=== PATIENT | male | born 1935 | race Caucasian/White ===

== ENCOUNTER → 2018-09-16 07:28 | Outpatient (CLI) | payer OTHER, SELFPAY ==
--- NOTE | 2018-09-16 | DI.ECHO.S_ITS ---
[facility] +---------+ : : [address] : : : : [id number] : : : : Phone: [phone]+ Echocardiogram Report + + :Name: ELAN SINGH Study Date: 09/16/2018 Height: 65 in : :[facility] Weight: 209 lb : : Gender: Male BSA: 2.0 m2 : :: 1935 Age: 83 yrs BP: 146/78 mmHg: :Reason For Study: DYSPNEA ON EXERTION, AFIB : : Performed By: Jocelyn Antunez : :Referring: ADRIANO RICHARDSON : + + Interpretation Summary The left ventricle is normal in size. Left ventricular systolic function is borderline reduced. Left ventricular ejection fraction is estimated to be 50%. There has been no significant change since the previous study. There is proximal/mid inferior and inferolateral severe hypokinesis and part of basal anterolateral is involved as well. Compared to the prior exam, the left ventricular wall motion has not changed. Diastolic function could not be accurately assessed due to atrial fibrillation. The right ventricle is normal in size and function. The left atrium is severely dilated. Right atrial size is normal. There is mild to moderate mitral regurgitation. There is mild to moderate aortic regurgitation. Both have slightly increased since prior study. The aortic root is normal size. Procedure: A two-dimensional transthoracic echocardiogram with color flow and Doppler was performed. The study quality was technically adequate. Comparison is made with the echocardiogram of 09/23/2011. The patient was in atrial fibrillation with heart rates between 59-83 bpm during the exam. Left Ventricle: The left ventricle is normal in size. There is mild asymmetric left ventricular hypertrophy. There is no ventricular septal defect visualized. Left ventricular systolic function is borderline reduced. Left ventricular ejection fraction is estimated to be 50%. There has been no significant change since the previous study. There is proximal/mid inferior and inferolateral severe hypokinesis and part of basal anterolateral is involved as well. Compared to the prior exam, the left ventricular wall motion has not changed. Diastolic function could not be accurately assessed due to atrial fibrillation. Right Ventricle: The right ventricle is normal in size and function. Atria: The left atrium is severely dilated. Right atrial size is normal. There is no Doppler evidence for an interatrial shunt. Mitral Valve: The mitral valve leaflets are slightly calcified. There is mild to moderate mitral regurgitation. Aortic Valve: The aortic valve is trileaflet. The aortic valve is slightly calcified. There is mild to moderate aortic regurgitation. Tricuspid Valve: The tricuspid valve is normal in structure and function. There is trace tricuspid regurgitation. Pulmonic Valve: The pulmonic valve is not well seen, but is grossly normal. There is trace pulmonic regurgitation. Great Vessels: The aortic root is normal size. The ascending aorta is at the upper limits of normal in size. The aortic arch is normal in size. The IVC is of normal diameter and collapses greater than 50% with a sniff. This suggests a low right atrial pressure of 3 mm Hg. Pericardium/ Pleura There is no pericardial effusion. MMode/2D Measurements & Calculations LVIDd: 5.0 cm LVOT diam: 2.2 cm LVIDs: 4.1 cm Ao root diam: 3.6 cm FS: 18.6 % Aortic Jxn: 2.7 cm EPSS: 0.40 cm asc Aorta Diam: 3.4 cm IVSd: 1.1 cm Ao Arch Diam (Prox Trans): 3.0 cm LVPWd: 0.67 cm LV faria. diameter/BSA (cm/m^2): 2.5 LV sys. diameter/BSA (cm/m^2): 2.0 LA A2 area: 29.8 cm2 RA long axis: 5.7 cm LA A4 area: 28.7 cm2 RA area: 20.1 cm2 LA length (vol): 6.0 cm RA vol: 60.1 ml LA vol: 120.1 ml RA : 29.8 ml/m2 LA vol index: 59.6 ml/m2 IVC diam: 1.9 cm RVD1 (basal): 3.8 cm TAPSE: 1.4 cm Doppler Measurements & Calculations LVOT Max Arsalan: 67.2 cm/sec MV E max arsalan: 85.2 cm/sec LV V1 max P.8 mmHg Med Peak E' Arsalan: 5.9 cm/sec LV V1 VTI: 14.9 cm E/E' med: 14.3 AI P1/2t: 584.7 msec Lat Peak E' Arsalan: 6.3 cm/sec AI dec slope: 182.3 cm/sec2 E/E' lat: 13.5 E/e' average: 13.9 MV P1/2t: 51.9 msec MR ERO: 0.05 cm2 TR max arsalan: 211.1 cm/sec MV P1/2t max arsalan: 85.5 cm/sec TR max P.9 mmHg MVA(P1/2t): 4.2 cm2 PA V2 max: 58.4 cm/sec PA V2 mean: 40.8 cm/sec PA mean P.76 mmHg PA pr(Accel): 46.6 mmHg MR flow rate: 22.1 cm3/sec SV(LVOT): 58.1 ml MR PISA radius: 0.30 cm Reading Physician:03:14 PM
--- NOTE | 2018-09-16 14:52 | P.PCN_ITS ---
Cardiac Stress Test Report Referral & Results Date Patient Seen: 09/16/18 Requesting provider: Varun King Indication: Dyspnea upon exertion Rest ECG: Unremarkable, however did have an undetermined supraventricular rhythm that was not atrial fibrillation Procedure Note: After both written and verbal informed consent the patient had an IV started by the diagnostic imaging RN and then was hooked up to the treadmill monitoring system. The patient was placed on the treadmill at 1 mile an hour with no elevation and was then injected with the Marissa scan material. The Cardiolite was then immediately administered. The patient spent an additional 2-3 minutes on the treadmill before being returned to the [facility] in the supine position. The patient had a normal response to all infused materials. Impression: Normal response to infuse materials Please see perfusion imaging report for details regarding possible ischemia Please note: Actual ECG tracings can be found in the PACS system.
--- NOTE | 2018-09-17 07:59 | DI.NM.S_ITS ---
DATE OF SERVICE: 09/16/2018 STUDY TYPE: One-day pharmaceutical nuclear stress test. RADIOISOTOPES: 15.1 mCi of Tc-99m used at rest and 26.1 mCi Tc-99m used at stress. STRESS AGENT: Lexiscan 0.4 mg IV x1 given as a stress agent. ECG: Resting ECG shows atrial fibrillation with controlled ventricular rate. No ischemic ST changes with Lexiscan. SYMPTOMS: No angina during the study. 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 SSS and SRS scores are both 5. GATED IMAGES: Normal left ventricular size, wall motion, and systolic function (post-stress EF 63%). TID ratio is 0.93, normal. Lung to heart ratio is 0.39, normal. CONCLUSIONS: Abnormal pharmaceutical nuclear stress test, consistent with prior infarction. No ischemia. 1. Abnormal perfusion images, consistent with prior infarction in the basal to mid-lateral wall. No ischemia. Summed stress score (SSS) and summed rest score (SRS) are both 5. 2. Normal left ventricular size, wall motion, and systolic function (EF post- stress 63%). 3. No electrocardiogram (ECG) evidence of ischemia. 4. No angina during the study. 5. No prior nuclear stress test available for comparison. ELAN SINGH - ZENY/jareth/ts doc#: [id number]/job#: [id number] dd: 09/16/2018 16:52:00 dt: 09/17/2018 07:38:00 DICTATING /COPIES TO: Ranjan Macedo MD COPIES MNE: JEWELS
== END ==
PROVIDERS: PCP Student in an Organized Health Care Education/Training Program; Visit Provider Nurse Practitioner Family
DX: I08.0 Rheumatic disorders of both mitral and aortic valves (principal); R94.39 Abnormal result of other cardiovascular function study; R06.09 Other forms of dyspnea; I48.91 Unspecified atrial fibrillation; I49.8 Other specified cardiac arrhythmias
CPT/HCPCS: 78452; 93016; 93017; 93018; 93306; A9502; J2785

== ENCOUNTER → 2018-10-14 12:48 | Outpatient (CLI) | payer OTHER, SELFPAY ==
--- NOTE | 2018-10-19 08:07 | PM.PFT.1 ---
Pulmonary Function Test Referral & Results Date Patient Seen: 10/14/18 Requesting provider: Varun King Results: The spirometry demonstrates an FVC of 1.86 L which is 50% of predicted. The FEV1 was measured at 1.50 L which is 60% of predicted. The FEV1/FVC ratio was 81 which is 113% of predicted. Following the administration of bronchodilator there was a 50% improvement in FEV1 and a 81% improvement in FEF 25-75%. Lung volumes show an SVC of 1.76 L which is 47% of predicted. The diffusing capacity was measured at 18.88 which is 70% of predicted. No hemoglobin value was provided, so no correction for potential anemia could be made, if appropriate. The maximum voluntary ventilation was reduced Interpretation: This study demonstrates moderate obstructive lung disease based on reduction in FEV1. There is evidence of benefit following bronchodilator given the 15% improvement in FEV1 and the 80+% improvement in small airway flow based on improved FEF 25-75% There is also moderately severe restrictive lung disease based on significant reduction in lung volumes There is also reduction in diffusing capacity as noted above Altogether this is consistent with a diagnosis of COPD Clinical correlation suggested
== END ==
PROVIDERS: PCP Student in an Organized Health Care Education/Training Program; Visit Provider Student in an Organized Health Care Education/Training Program
DX: R06.09 Other forms of dyspnea (principal)
CPT/HCPCS: 94060; 94726; 94729

== ENCOUNTER 2022-06-12 08:48 | Day surgery (SDC) | payer MEDICARE, SELFPAY ==
[2022-06-09 09:36] VITALS: BMI 33.7
[2022-06-12] VITALS (13 sets, daily range): BP systolic 99–141; BP diastolic 42–75; PULSE 74–96; RESP 15–19; TEMP 36.1–36.7; O2SAT 94–98; BMI 33.7
--- NOTE | 2022-06-12 06:00 | DI.RAD.S_ITS ---
PROCEDURE: XR KNEE RT 1TO2V INDICATIONS: TKA TECHNIQUE: 2 view(s) of the knee acquired. COMPARISON: None. FINDINGS: Bones: Patient is status post knee joint arthroplasty. Hardware components are in expected positions. Visualized bony structures are intact. Soft tissues: Overlying postoperative changes are noted. IMPRESSION: Expected appearance of knee arthroplasty. Dictated by: Neil Almonte M.D. on 06/12/2022 at 14:41 Transcribed by: INEZ on 06/12/2022 at 14:41 Approved by: Neil Almonte M.D. on 06/12/2022 at 16:57
[2022-06-12] MEDS: ACETAMINOPHEN 325 MG TABLET 975 MG PO (09:39)
[2022-06-12] MEDS: CELECOXIB 200 MG CAPSULE PO (09:39)
[2022-06-12] MEDS: LACTATED RINGERS 1,000 ML 84 ML IV ×2 (09:40→12:01)
[2022-06-12] MEDS: VANCOMYCIN 1,000 MG/200 ML PIGGYBACK 200 MG IV (09:51)
--- NOTE | 2022-06-12 10:38 | PM.PREOP ---
Pre-operative Note COVID-19 COVID-19 status: Negative Interval Note History & Physical reviewed/Exam performed by Physician: Yes Changes to H&P: No
--- NOTE | 2022-06-12 10:38 | PM.OP.1 ---
Operative Date/Time/Diagnoses Date of procedure: 06/12/22 Time of procedure: 11:10 Pre-op diagnosis: right knee OA Post-op diagnosis: same Procedure & Clinicians Procedure: right total knee arthroplasty Same procedure as scheduled: Yes Indications: The patient has had progressively worsening right knee pain with radiographic changes consistent with arthritis. Non-operative management has failed and the patient has requested total knee replacement. The risks, benefits and alternatives to surgery were discussed with the patient prior to proceeding. Risks discussed included, but were not limited to, failure to relieve pain, stiffness, infection, nerve damage, deep venous thrombosis, pulmonary embolism, stroke, coma, heart attack, permanent paralysis and , as well as the potential need for eventual revision of the prosthetic. Surgeon: Charo Warner Showroom Sales Consultant: Neda Alvarado Anesthesia Type: General Operative Notes Findings: Severe right knee osteoarthritis, acceptable stability Closure Type: primary Specimen(s): none sent Prosthetic devices, grafts, tissues, transplants, or devices: [employer] [facility] BCS 2 size 5 femur, size 5 tibia, +9 poly, 32 x 7-1/2 mm patella Estimated Blood Loss (mL): 250 Blood products transfused: none Tourniquet time (min): 76 Procedure in detail: The patient was seen in the pre-operative area, where the patient identified the right knee as the operative site and this was marked with my initials. The patient received pre-operative antibiotics, and was taken to the operating room and placed on the operative table in the supine position. After satisfactory anesthesia, a time piece repairer out was performed. The right leg was encircled with a tourniquet about the proximal thigh, and the leg was prepared from the toes to the tourniquet with ChloroPrep in the usual fashion and draped through sterile drapes. The leg was elevated and exsanguinated with Eschmark bandage and the tourniquet inflated to [250] mmHg pressure. The knee was approached through an approximately 18 cm incision centered over the patella and carried into the knee through a medial parapatellar arthrotomy. A portion of the medial and lateral meniscus was resected. Soft tissue was carefully mobilized around the patella the patella was measured with a caliper. Bone was resected from the patella and the patellar height was reconstituted with up an appropriate sized patellar component. A cover was then placed on the patella. A small amount of additional medial and lateral meniscus was resected. The distal femur was cut at 5?. A [+2] cut was used. It looked like an appropriate distal femoral cut and the cut was made without difficulty. An extramedullary guide was used for the tibial cut. 10 mm was resected off the least affected side.The tibia was prepared. The rotation was assessed. The patient was placed in extension residual medial and lateral meniscus as well as any residual bone was carefully resected. [No] additional tibia was resected. Hemostasis was achieved especially posteriorly. Additional local was injected into the posterior capsule. The extension gap was assessed and additional releases for gap balancing were performed as necessary. It was checked with the gap cellar packer. The femoral component was trial was placed and the notch was finished. The rotation was assessed and the appropriate size femoral guide was placed on the distal femur and finishing cuts were made. There was no evidence of notching. The anterior, posterior and chamfer cuts were then made. The posterior osteophytes and soft tissues were then removed. The posterior capsule was injected with part of a mixture of 60 ml 0.25% Marcaine mixed with 20 ml Exparel for post operative pain control. The remainder of this mixture was injected into the capsule and subcutaneous tissues during cement curing. The tibial and femoral components were then placed and the knee placed through a range of motion. Range of motion was [0-130], with good stability throughout the range. The trials were then removed, and the tibia was finished. The bone was prepared with pulsatile lavage, and dried with a sponge. Cement was applied and the final prosthetics placed. Excess cement was removed during and after cement curing. A brief Betadine soak was performed. After confirming there was no extruded cement posteriorly, the final tibial insert was placed. The knee was copiously irrigated and the tourniquet deflated. Hemostasis was obtained with the bovie cautery. A drain was placed and brought out superolaterally. The capsule was closed with interrupted nonabsorbable suture. The subcutaneous layer was closed with barbed sutures, and the skin with a running 3-0 V-Lock suture and Surgical glue. A Jessica dressing was applied and the patient was taken to recovery having tolerated the procedure well. Complications: none Post-operative Condition: stable Disposition: Acute Care Plan for aftercare: The patient will be maintained on a standard total knee replacement protocol with weight bearing as tolerated. The patient will receive Eliquis and Plavix and sequential compression devices for DVT prophylaxis. The patient will be discharged home when safe for the home environment.
[2022-06-12] MEDS: CEFAZOLIN 2 GM/100 ML PREMIX 100 ML IV ×2 (11:05→17:05)
[2022-06-12] MEDS: TRANEXAMIC ACID 1,000 MG VIAL 2000 MG INJ ×2 (11:10→12:40)
--- NOTE | 2022-06-12 11:28 | SUR.OPER ---
Supine on padded OR bed. Pillow under head, arms secured on padded armboards <90 degree abduction. Safety belt across torso. Non-operative leg secured with tape over blanket over lower leg. Operative leg secured in DeMayo positioner. Foam padded brace at thigh of operative leg.
[2022-06-12] MEDS: BUPIVACAINE LIPOSOME 266 MG/20 ML VIAL INJ (11:39)
[2022-06-12] MEDS: SODIUM CHLORIDE IRRIG SOLUTION 250 ML, POVIDONE-IODINE SPONGE STICKS 1 APPLIC IRR (11:44)
[2022-06-12] MEDS: BUPIVACAINE 0.5% W/ EPI (PF) 30 ML VIAL INJ (11:50)
[2022-06-12] MEDS: LACTATED RINGERS 1,000 ML 100 ML IV (15:44)
[2022-06-12] MEDS: UMECLIDINIUM 1 EACH INH (15:44)
--- NOTE | 2022-06-12 16:35 | PT.IIE ---
Current Diagnoses Unilateral primary osteoarthritis, right knee (06/12/22) Surgery Performed Operation Date: 06/12/22 10:45 Actual Procedures p Total Knee Arthroplasty(Right) - Charo Warner MD Surgical History (Last Updated 06/09/22 @ 10:24 by Raquel Pena RN) H/O vasectomy 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) History of urologic surgery (2021) Hx laparoscopic cholecystectomy (2009) Hx of esophagogastroduodenoscopy (08/19/21) Hx of heart artery stent (1999) Hx of lithotripsy (2016) Hx of tonsillectomy (1941) Hx of umbilical hernia repair (2014) Medical History (Last Updated 06/09/22 @ 10:24 by Raquel Pena RN) Atrial fibrillation BCC (basal cell carcinoma) CAD (coronary artery disease) Cardiac arrest (1999) Chronic kidney disease (CKD) COPD (chronic obstructive pulmonary disease) Diastolic dysfunction Erectile dysfunction Hearing impaired Heartburn History of Mohs micrographic surgery for skin cancer (06/02/22) HTN (hypertension) Liver nodule 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) Myocardial infarction (1999) PAC (premature atrial contraction) PAD (peripheral artery disease) PVC (premature ventricular contraction) Renal colic SCC (squamous cell carcinoma) Sleep apnea Physical Therapy Inpatient Evaluation/Re-Eval M1 PT/OT-IP Prior Functional Status Start: 06/12/22 17:37 Freq: NEEDED Status: Active Protocol: Document 06/12/22 16:35 AB (Rec: 06/12/22 17:45 AB [id number]) Medical Review Prior Functional Status Medical History Reviewed Yes Communication able to make needs known Mobility and Gait pt stated that he is modified independent with all mobilities and ambulation without AD indoors but uses a walking stick for outdoor ambulation Social History Household Members spouse Living Arrangements House Number of Floors (Floors) One Floor Number of Stairs To Enter/Railing? no steps to enter Home Environment Standard Height Toilet,Walk in Shower Home Equipment Front Wheel Walker,Grab Bars Near Toilet,Grab Bars In Shower M2 PT-IP Current Condition Start: 06/12/22 17:37 Freq: NEEDED Status: Active Protocol: Document 06/12/22 16:35 AB (Rec: 06/12/22 17:45 AB [email or web address]) Physical Therapy Current Condition Current Condition Evaluation Date 06/12/22 Treatment Diagnosis s/p R TKA; difficulty in walking Onset Date 06/12/22 M3 PT-IP Subjective Start: 06/12/22 17:37 Freq: NEEDED Status: Active Protocol: Document 06/12/22 16:35 AB (Rec: 06/12/22 17:45 AB [email or web address]) Subjective Physical Therapy Visit Type Type Initial Evaluation Visit Start Time 16:35 Visit Stop Time 17:20 Total Visit Minutes 45 Number of LINE CONSTRUCTION ENGINEER Visits 0 Physical Therapy Visit Comments Patient Comments agreeable to do PT Therapy Pain Assessment Pain When Pain Assessed At Rest Pain Present Pain Present Pain Reported Location Right Knee Intensity 3 Scale Used increases to 5/10 with mobility Pain Management Techniques Apply Cold,Distraction, Modification of Treatment,Re- positioning,Timing of Activity with Medications M4 PT-IP Mobility and Gait Start: 06/12/22 17:37 Freq: NEEDED Status: Active Protocol: Document 06/12/22 16:35 AB (Rec: 06/12/22 17:45 AB [email or web address]) PT-Bed Mobility Assessment Supine to Sit Supine to Sit Standby Assistance PT-Transfer Assessment Sit to and From Stand Sit to and from Stand Contact Guard Assistance,1 Person Assistance,Use of Upper Extremities Equipment Transfer Assistive Device Gait Belt,Front Wheeled Walker Orthotic/Prosthetic Devices or Brace: No Transfers Transfer Destination Chair Transfer Technique ambulated Transfer Ability Level of Assist Contact Guard Assistance,1 Person Assistance,Use of Upper Extremities Comments Mobility Comments completed heel slides prior to mobility. completed supine to sit SBA. Able to sit on EOB SBA. completed sit to stand CGA and ambulated in room using FWW CGA ~ 35 ft. pt agreed to sit up on the chair and sat on the chair. assessed sit to stand from the chair and pt completed SBA to CGA. positioned pt back on the chair. set up for dinner. call light and table placed within reach. pt's spouse staying in room with pt for the night and agreeable to do caregiver training tomorrow when appropriate. Gait Assessment Gait Gait Assistance Required: Contact Guard Assist Distance (Feet) 35 Able to Maintain Weight Bearing Status Yes During Gait Assistive Devices Assistive Device Gait Belt,Front Wheeled Walker Orthotic/Prosthetic Devices or Brace: No Gait Deviations General Gait Pattern Decreased Stride Length, Decreased Feet Clearance,Step- to Gait Factors Limiting Gait Function Factors Limiting Gait Function Decreased Activity Tolerance, Decreased Strength,Limited Range of Motion,Pain,Poor Balance,Poor Safety Awareness PT-Balance Assessment Sitting Balance and Reactions Static Sitting Balance Ability Normal Dynamic Sitting Balance Ability Good Standing Balance and Reactions Static Standing Balance Ability Fair Dynamic Standing Balance Ability Fair Device Used FWW M5 PT-IP Objective Assessments Start: 06/12/22 17:37 Freq: NEEDED Status: Active Protocol: Document 06/12/22 16:35 AB (Rec: 06/12/22 17:45 AB [email or web address]) Orientation Orientation/Cognition Level of Alertness Alert Orientation Name,Place,Situation Language Function Ability Hard of Hearing Safety Awareness Understands Safety Issues Memory Description No Deficits Noted Gross Range of Motion Lower Extremity ROM Assessment Right Impaired Impairments R knee flexion: ~ 75 deg Strength Lower Extremity Strength Assessment Right Impaired Hip 4-/5 Knee 4-/5 Coordination Assessment Gross Coordination Gross Coordination WNL Sensation Assessment Sensation Gross Sensation WNL Muscle Tone Muscle Tone WNL Yes M6 PT-IP Treatment Start: 06/12/22 17:37 Freq: NEEDED Status: Active Protocol: Document 06/12/22 16:35 AB (Rec: 06/12/22 17:45 AB [id number]) Physical Therapy Treatment Exercises Exercises Heel Slides Education Education Provided Precautions,Weight Bearing Status,Post-Op Packet,Safety M7 PT-IP Assessment and Plan Start: 06/12/22 17:37 Freq: NEEDED Status: Active Protocol: Document 06/12/22 16:35 AB (Rec: 06/12/22 17:45 AB [id number]) PT Summary Assessment and Plan Potential Rehabilitation Potential Good Status of Condition at Evaluation Stable Summary Impairments Pain,ROM,Strength,Balance, Coordination,Sensation,Tone, Cognition,Bed Mobility, Transfers,Gait,Activity Tolerance Assessment Summary pt requiring CGA with mobility using FWW. pt plans to go home with spouse to assist him . pt will likely progress during hospital stay. will conduct caregiver training when appropriate. will continue to assess progress. Goals Bed Mobility Goal Independent Transfer Goal Independent,Front Wheeled Walker Gait Goal Independent,Front Wheel Walker Gait Distance 150 Days to Meet Goals 5 Frequency of Treatment Frequency Of Treatment Twice a Day Treatment Plan Physical Therapy Treatment Plan Bed Mobility Training,Transfer Training,Gait Training, Therapeutic Exercise,Balance Retraining,Post Op Education, Discharge Planning,Hot or Cold Pack,Neuromuscular Re-ed, Coordination Retraining,Manual Therapy Weight Bearing Status Weight Bearing Status Weight Bear as Tolerated Allowed Weight Bearing Amount (enter % RLE WBAT or #) (%) Recommendations To Nursing Amount of Assist Needed 1 Person Assist Discharge Recommendations PT Discharge Recommendations Home with Assistance, Outpatient PT Transportation Needs at Discharge Private Vehicle
[2022-06-12] MEDS: IBUPROFEN 400 MG TABLET PO ×2 (16:57→20:53)
[2022-06-12] MEDS: ACETAMINOPHEN 325 MG TABLET 650 MG PO (17:05)
[2022-06-12] MEDS: METOPROLOL ER 50 MG TABLET PO (20:52)
[2022-06-12] MEDS: DOCUSATE 100 MG CAPSULE PO (20:52)
[2022-06-12] MEDS: AMLODIPINE 5 MG TABLET PO (20:52)
[2022-06-12] MEDS: TRAMADOL 50 MG TABLET PO (20:52)
[2022-06-12] MEDS: ATORVASTATIN 20 MG TABLET 10 MG PO (20:52)
[2022-06-12] MEDS: MELATONIN 3 MG TABLET PO (20:53)
[2022-06-13] MEDS: ACETAMINOPHEN 325 MG TABLET 650 MG PO ×3 (01:15→12:19)
[2022-06-13] MEDS: IBUPROFEN 400 MG TABLET PO ×3 (01:16→09:37)
[2022-06-13] MEDS: CEFAZOLIN 2 GM/100 ML PREMIX 100 ML IV (01:16)
[2022-06-13 03:00] VITALS: BP 122/58; PULSE 66; RESP 15; TEMP 36.2; O2SAT 96
[2022-06-13] MEDS: TRAMADOL 50 MG TABLET PO ×2 (03:32→09:36)
[2022-06-13 05:52] LABS: Hematocrit 39.1 % (41-53); Hemoglobin 12.8 g/dL (13.5-17.5)
[2022-06-13 08:34] VITALS: BP 121/63; PULSE 67; RESP 16; TEMP 36.6; O2SAT 97
--- NOTE | 2022-06-13 08:55 | PC.NURSE ---
Patient has a Jessica dressing to his r.knee, motor intact and flashing green. He states that his pain is a 2/10 and he is comfortable. Patient lives in [place] and wants to have his scripts sent to [facility]. CMS wnl, patient doing his ankle waves, and is in room.
[2022-06-13] MEDS: NIACIN 500 MG TABLET PO (09:36)
[2022-06-13] MEDS: PANTOPRAZOLE DR 40 MG TABLET PO (09:36)
[2022-06-13] MEDS: DOCUSATE 100 MG CAPSULE PO (09:36)
--- NOTE | 2022-06-13 10:00 | PT.IPTN ---
Current Diagnoses Unilateral primary osteoarthritis, right knee (06/12/22) Surgery Performed Operation Date: 06/12/22 10:45 Actual Procedures p Total Knee Arthroplasty(Right) - Charo Warner MD Physical Therapy Treatment Note M2 PT-IP Current Condition Start: 06/12/22 17:37 Freq: NEEDED Status: Active Protocol: Document 06/12/22 16:35 AB (Rec: 06/12/22 17:45 AB [id number]) Physical Therapy Current Condition Current Condition Evaluation Date 06/12/22 Treatment Diagnosis s/p R TKA; difficulty in walking Onset Date 06/12/22 M3 PT-IP Subjective Start: 06/12/22 17:37 Freq: NEEDED Status: Active Protocol: Document 06/13/22 10:00 AB (Rec: 06/13/22 12:21 AB [id number]) Subjective Physical Therapy Visit Type Type Treatment Note Visit Start Time 10:00 Visit Stop Time 10:30 Total Visit Minutes 30 Number of DROP HAMMER MECHANIC Visits 0 Physical Therapy Visit Comments Patient Comments agreeable to do PT Therapy Pain Assessment Pain When Pain Assessed At Rest Pain Present Pain Present Pain Reported Location Right Knee Intensity 3 Scale Used increases to 5/10 with mobility Pain Management Techniques Apply Cold,Distraction, Modification of Treatment,Re- positioning,Timing of Activity with Medications M4 PT-IP Mobility and Gait Start: 06/12/22 17:37 Freq: NEEDED Status: Active Protocol: Document 06/13/22 10:00 AB (Rec: 06/13/22 12:21 AB [id number]) PT-Bed Mobility Assessment Supine to Sit Supine to Sit Standby Assistance PT-Transfer Assessment Sit to and From Stand Sit to and from Stand Contact Guard Assistance, Minimal Assistance,1 Person Assistance,Use of Upper Extremities Equipment Transfer Assistive Device Gait Belt,Front Wheeled Walker Orthotic/Prosthetic Devices or Brace: No Transfers Transfer Destination Chair Transfer Technique ambulated Transfer Ability Level of Assist Contact Guard Assistance,1 Person Assistance,Use of Upper Extremities Comments Mobility Comments pt completed supine to sit SBA . sit to stand min A with posterior LOB. educated pt on sit to stand techniques, increase COG awareness and use FWW for balance and support. completed sit to stand again x2 reps and completed CGA and cues. pt ambulated to the chair using fWW CGA. caregiver training conducted. educated spouse on how to use safety belt and how to assist pt. spouse was able to put safety belt on and assisted pt with sit to stand CGA. pt ambulated in room using FWW with spouse assisting ~ 30 ft x 2 . pt needing rest breaks in between walks. pt agreed to sit up on the chair. positioned on the chair. call light and table placed within reach. Gait Assessment Gait Gait Assistance Required: Contact Guard Assist Distance (Feet) 30 Able to Maintain Weight Bearing Status Yes During Gait Assistive Devices Assistive Device Gait Belt,Front Wheeled Walker Orthotic/Prosthetic Devices or Brace: No Gait Deviations General Gait Pattern Decreased Stride Length, Decreased Feet Clearance,Step- to Gait Factors Limiting Gait Function Factors Limiting Gait Function Decreased Activity Tolerance, Decreased Strength,Limited Range of Motion,Pain,Poor Balance,Poor Safety Awareness M5 PT-IP Objective Assessments Start: 06/12/22 17:37 Freq: NEEDED Status: Active Protocol: Document 06/12/22 16:35 AB (Rec: 06/12/22 17:45 AB [id number]) Orientation Orientation/Cognition Level of Alertness Alert Orientation Name,Place,Situation Language Function Ability Hard of Hearing Safety Awareness Understands Safety Issues Memory Description No Deficits Noted Gross Range of Motion Lower Extremity ROM Assessment Right Impaired Impairments R knee flexion: ~ 75 deg Strength Lower Extremity Strength Assessment Right Impaired Hip 4-/5 Knee 4-/5 Coordination Assessment Gross Coordination Gross Coordination WNL Sensation Assessment Sensation Gross Sensation WNL Muscle Tone Muscle Tone WNL Yes M6 PT-IP Treatment Start: 06/12/22 17:37 Freq: NEEDED Status: Active Protocol: Document 06/13/22 10:00 AB (Rec: 06/13/22 12:21 AB [email or web address]) Physical Therapy Treatment Education Education Provided Safety M7 PT-IP Assessment and Plan Start: 06/12/22 17:37 Freq: NEEDED Status: Active Protocol: Document 06/13/22 10:00 AB (Rec: 06/13/22 12:21 AB [id number]) PT Summary Assessment and Plan Potential Rehabilitation Potential Good Summary Impairments Pain,ROM,Strength,Balance, Coordination,Sensation,Tone, Cognition,Bed Mobility, Transfers,Gait,Activity Tolerance Progress Towards Goals Progressing Toward Goals Assessment Summary pt doing well with mobility and needing CGA to min A. caregiver training conducted and spouse was able to assist pt safely. pt plans to go home and already has outpt PT set up. pt may go home when medically stable. Goals Bed Mobility Goal Independent Transfer Goal Independent,Front Wheeled Walker Gait Goal Independent,Front Wheel Walker Gait Distance 150 Days to Meet Goals 5 Frequency of Treatment Frequency Of Treatment Twice a Day Treatment Plan Physical Therapy Treatment Plan Bed Mobility Training,Transfer Training,Gait Training, Therapeutic Exercise,Balance Retraining,Post Op Education, Discharge Planning,Hot or Cold Pack,Neuromuscular Re-ed, Coordination Retraining,Manual Therapy Weight Bearing Status Weight Bearing Status Weight Bear as Tolerated Allowed Weight Bearing Amount (enter % RLE WBAT or #) (%) Recommendations To Nursing Amount of Assist Needed 1 Person Assist Discharge Recommendations PT Discharge Recommendations Home with Assistance, Outpatient PT Transportation Needs at Discharge Private Vehicle
--- NOTE | 2022-06-13 10:10 | PM.DS.1 ---
History of Present Illness History of Present Illness Date Patient Seen: 06/13/22 Time Patient Seen: 10:10 Chief complaint: OPB Narrative: Patient is complaining of [id number] right knee pain. His is at bedside. He notes he had a difficult time sleeping last night, but is overall feeling well and would like to be discharged home today after physical therapy. Tramadol is controlling his pain well. Discharge Providers Provider Discharge Date: 06/13/22 Primary care physician: Varun King MD Consults: 06/12/22 06:00 Consult to Anesthesiology Routine Comment: Consulting Provider: Anesthesiologist Reason for consultation: Regional block for post operative pain control 06/12/22 13:50 Consult to Discharge Planning Routine Comment: Consult to Physical Therapy Evaluate & Treat Comment: Physician Instructions: postop TKA protocol Discharge provider: Gayla Russell PA-C Summary Hospital Course Discharge Diagnosis: -right knee osteoarthritis -chronic anticoagulation use due to cardiac stent placement in 1999 Hospital Course: Operative Date/Time/Diagnoses Date of procedure: 06/12/22 Time of procedure: 11:10 Procedure & Clinicians Procedure: right total knee arthroplasty Same procedure as scheduled: Yes Indications: The patient has had progressively worsening right knee pain with radiographic changes consistent with arthritis. Non-operative management has failed and the patient has requested total knee replacement. The risks, benefits and alternatives to surgery were discussed with the patient prior to proceeding. Risks discussed included, but were not limited to, failure to relieve pain, stiffness, infection, nerve damage, deep venous thrombosis, pulmonary embolism, stroke, coma, heart attack, permanent paralysis and , as well as the potential need for eventual revision of the prosthetic. Surgeon: Charo Warner Custom Applicator: Neda Alvarado Anesthesia Type: General Operative Notes Findings: Severe right knee osteoarthritis, acceptable stability Closure Type: primary Specimen(s): none sent Prosthetic devices, grafts, tissues, transplants, or devices: [employer] BCS 2 size 5 femur, size 5 tibia, +9 poly, 32 x 7-1/2 mm patella Estimated Blood Loss (mL): 250 Blood products transfused: none Tourniquet time (min): 76 Status at Discharge Cognitive/behavioral status at discharge: at baseline, oriented Functional status at discharge: uses cane/walker Overall status at discharge: patient is progressing back to baseline Exam Vital Signs (past 8 hours): - 06/13/22 03:00 06/13/22 08:34 Temperature 97.2 F L 97.8 F Pulse Rate 66 67 Respiratory Rate 15 16 Blood Pressure 122/58 L 121/63 Pulse Oximetry 96 97 Oxygen Flow Rate 0 0 Oxygen Delivery Method Room Air Oxygen Flow Rate 0 Narrative Exam Narrative: Pleasant 87-year-old male, resting comfortably in bed, no acute distress. His daughter is at bedside. Right knee jessica dressing is clean, dry, intact. No surrounding erythema, induration, or jermaine pus. Bilateral lower extremity: Motor functions are grossly intact, sensation is grossly intact to light touch, calves are soft and nontender to palpation. 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) Myocardial infarction (1999) PAC (premature atrial contraction) PAD (peripheral artery disease) PVC (premature ventricular contraction) Renal colic SCC (squamous cell carcinoma) Sleep apnea Surgical History H/O vasectomy 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 weightbearing as tolerated with front wheel walker or cane -continue with multimodal pain management. He will stop ibuprofen once he resumes his normal anticoagulants -resume Eliquis daily and Plavix Wednesday, Wednesday, Wednesday beginning on 06/15/22 for DVT prophylaxis and his history of cardiac stents -DC home today once cleared by Physical therapy. Discharge Plan Discharge Plan Patient Disposition: Home Discharge orders & Medications Discharge Orders: Discharge (Order); Ordered 06/13/22 Ordered By: Gayla Russell Prescriptions: New docusate sodium 100 mg Capsule 100 mg PO BID PRN (Reason: Constipation from narcotic pain meds) Qty: 20 0RF tramadol 50 mg Tablet See Rx Instructions .ROUTE .COMPLEX PRN (Reason: Pain, Moderate (4-6)) Qty: 42 0RF Rx Instructions: Take 1-2 tablets by mouth every 4 hours as needed for moderate to severe postoperative pain (Max 8 tablets per day) Continued metoprolol succinate 50 mg Tablet Extended Release 24 Hr 50 mg PO BEDTIME simvastatin 10 mg Tablet 10 mg PO BEDTIME amlodipine 5 mg Tablet 5 mg PO BEDTIME pantoprazole 40 mg Tablet,Delayed Release (Dr/Ec) 40 mg PO DAILY niacin 500 mg Tablet 500 mg PO DAILY Incruse Ellipta 62.5 mcg/actuation Blister With Device 1 inh INHALATION QNOON melatonin 3 mg Capsule 3 mg PO BEDTIME Eliquis 5 mg Tablet 5 mg PO BID Qty: 1 0RF Rx Instructions: Resume 06/15/2022 clopidogrel 75 mg Tablet 75 mg PO QMWF Qty: 1 0RF Rx Instructions: Resume 06/15/2022 Changed acetaminophen 650 mg Tablet Extended Release 650 mg PO Q6H PRN (Reason: pain) Qty: 1 0RF Follow up/Referrals: Varun King MD [Primary Care Provider] - Charo Warner MD [Physician] - 2 Weeks (Follow up as scheduled on 06/24/22 at 11:30 am with Cherie Alvarado PA-C at the [facility] office in [place]. ) Diet/Activity/Treatments Diet: Diet as Tolerated Other treatments: Medications: -Aspirin 81mg twice daily x6 weeks to prevent blood clots. -OTC Tylenol 500 mg 1 tablet every 4 hours as needed for pain/fever. Max 6 tablets per day. -Ibuprofen 400 mg 1 tablet every 4 hours as needed for pain/inflammation. Max 2,400 mg per day. -Tramadol 50 mg take 1-2 tablets every 4 hours as needed for moderate-severe pain (narcotic pain medication; max 8 tabs per day). -As needed medications: -Ducolax and /or MiraLax as needed for constipation from narcotic pain medications. -Pepcid AC as needed for stomach upset (usually from aspirin or ibuprofen). Dressing/Wound care: -Remove the Branden wrap 48 hours after surgery. -Keep Jessica dressing in place until postoperative follow-up office visit. The Jessica battery/pump should last for 7 days from surgery. Once the pump stops, please cut off hose at base of dressing and cover with a bandaid/part of a dressing from Jessica package. The monitor can be thrown away and recycle the batteries. Leave the remaining dressing in place. -Jessica info: The Jessica dressing provides suction known as negative pressure wound therapy, which draws out excess fluid from the wound and protects the incision. It also helps to prevent bacteria from entering the wound or incision. -Okay to shower. Keep wound out of direct water stream. No soaking or submerging until all the scabs fall off (approximately 4-6 weeks). -No lotions, ointments, or scar creams directly to the incision until the wound is healed (4-6 weeks). No soaking or submerging until all the scabs are gone (usually 4-6 weeks). -Bruising is relatively normal and can show up 1-10 days after surgery, and can travel down to your foot or ankle. This is expected after surgery, but can be painful. -Please call the office if dressing becomes wet, soiled, or saturated. Activities: -Weight-bearing as tolerated. Use front wheeled walker, and progress to cane when safe. -Continue with home exercises as directed by your physical therapist. -Elevate ?toes above the nose if you have significant swelling in your lower leg. (A wedge pillow is easiest.) -Ice your incision as needed for pain/inflammation/swelling. Protect your skin with a folded pillowcase. -Incentive Spirometer (breathing device from [facility]): 5-10xs every hour while awake for the first 1-2 weeks. Follow-up: -Follow-up with your surgeon or PA in the office in 10-14 days after surgery. -Follow-up with your surgeon 6 weeks postoperatively. Call the office if you have chest pain, shortness of breath, significant swelling that will not resolve with elevating, fever over 101?, significantly worsening pain, or are concerned you might need to go to the Emergency Room. [facility]: [phone] Skin/Wound/Dressing Care Report to your healthcare provider any signs of infection, such as:: chills, fever, night sweats, unusual drainage and unusual redness Visit Report/Discharge Packet Instructions: DI for Knee Replacement Stand Alone Forms: Patient Portal/API, Stroke Signs & Symptoms, Surgery Discharge Discharge Data Primary Care Provider: Varun King Attending Provider: Charo Warner
[2022-06-13] MEDS: UMECLIDINIUM 1 EACH INH (11:44)
[2022-06-13 11:46] VITALS: O2SAT 94
--- NOTE | 2022-06-13 12:27 | CM.DANOTE ---
DCP: Assessment: Patient is a 87yo male who admitted with via pov on 06/12/22. He underwent a pre-planned Right Total Knee arthroplasty. Hx of Right knee Osteoarthritis, AFib, CAD, PR with stent's. PCP Varun King Payor: [employer] This CM met with pt an his in the room. Introduced self and role. Pt confirms that he lives with his on Wednesday, he drives at baseline and he does not use DME. Pt has outpatient PT set up, although is requesting in home services due to it being a taxing effort to leave his home s/p surgery. This CM reviewed options for HH services via tablet with pt and his . [facility]. This RN completed face to face and sent referral to [facility] who has accepted. [facility] states that it may be the middle of next week until they are able to get out to patient. This CM made pt aware and he is still agreeable. P: Home with and [facility] today. Devorah Ross RN Case Manager Discharge Planning/Care Management CM Discharge Assessment Start: 06/13/22 12:12 Freq: Status: Active Protocol: Document 06/13/22 12:14 JEN (Rec: 06/13/22 12:21 JEN [id number]) Discharge Planning Assessment Assigned Venue Coordinator Devorah Ross RN Case Manager Advance Directives? Yes Advance Directives on File No History Provided By Patient Prior Living Arrangements House Household Members spouse Type of transporation used prior to Drives own vehicle admit Independent with ADL's Yes Is patient alert and oriented? Yes Caregiver for Another No Community Services used prior to Physical Therapy admission: Comment Pt was attending out patient physical therapy per him as historian at baseline. Patient/Family Preference Home with Home Health Comment [facility], PT, OT preferred and this CM sent referral Barriers to Discharge No Discharge Plan Home with Home Health Transportation Arrangement will transport home. Referrals Initiated Home Health Additional Comment Pt originally was set up with outpatient PT, but pt prefers HH services, due to taxing effort r/t recent surgery. If patient plan is home with home health Yes : Has signed face to face form been completed? Medicare Choice List Provided Yes Medicare choice list reviewed on patient,family electronic tablet with SNF/HH Preference [facility] Contact Name/Phone [facility] [phone] Has Agency SNF been contacted Yes Whiteboard Updated in Patient Room with Yes name and ext. # of Venue Coordinator Review Status In Process Next Review Type Continued Stay Review Pre-Anesthesia Assessment Start: 06/09/22 09:36 Freq: Status: Active Protocol: Document 06/09/22 09:36 [facility] (Rec: 06/09/22 10:42 CAB [id number]) Pre-Anesthesia Assessment Patient Information Reviewed Via Phone Assessment Assessment Completed With Patient Diagnostic Results BMP/CMP,CBC,Urinalysis Comment Outside labs scanned, EKG done , not here, COVID screen on [place] Primary Care Provider Varun King Seen Specialist in Last 12 Months Yes Specialist Seen Printer Operator,Countersinker, Orthopedist,Urologist Primary Language Georgian Stroboroma Operator Required No Height 167.64 cm Weight 94.801 kg Body Mass Index (BMI) 33.7 Hearing Ability Hearing Impaired,Use of Hearing Aid Visual Assist Glasses Dentition Type Teeth, Natural Present Barriers to Learning Auditory,Memory Hx Anesthesia Reactions No: Morphine causes SOB, anxiety, prefers a spinal Hx Family Anesthesia Reaction No Hx Malignant Hyperthermia No Hx Blood Transfusions No Anesthesia Review Requested No alcohol intake former Smoking Status Former smoker how long ago did patient quit smoking Quit >60 years ago Substance Use Type does not use Pain Present Pain Reported Musculoskeletal Symptoms Abnormal Gait,Back Pain, Difficulty Walking,Joint Pain History of Falling (Recent or History of No ) Patient is completely paralyzed or No completely immobile Mental Status Oriented to own ability Comment Hiking stick with outside walking Is patient on oxygen? No Does patient have AGUILERA/SOB Yes: r/t COPD Hx Sleep Apnea Yes CPAP/BIPAP use prescribed and used routinely Will Bring CPAP/BIPAP DOS Yes Currently Taking a Beta Diana Yes: Metoprolol Can You Climb a Flight of Stairs Without No SOB Hx Chest Pain No Hx SOB Yes: r/t COPD Hx Syncope or Dizziness No Anti-Coagulant Therapy Yes: Plavix & Eliquis-advised to hold 06/08/22 per Cardiology Has a Printer Operator Yes: Pre-op visit 02/26/[address] Cartagnea @ [facility] Cardiac Testing Yes: Echo 03/27/22 Hx Pacemaker/ICD No Pacemaker Rep Required? No Cardiac Clearance Received Yes Comment Cardiac records scanned Diet Type At Home Regular Dysphagia No Gastrointestinal Symptoms Constipation,Reflux Chronic UTI No Bladder Pattern Nocturia Urinary Catheter Present No Hx Urinary Self Catheterization No Diabetes No Hx Drug Resistant Organism No Presence of External or Internal Medical Yes: CPAP, left knee Devices prosthesis, hearing aids, cardiac stents Have you had any close contact with No someone diagnosed with COVID-19? Received a COVID vaccine? Yes Received all doses? Yes Marital Status Current Living Arrangements House Number of Floors (Floors) Two Floors Support System Spouse Does the Patient Have Assistance After Yes Surgery Patient Discharge Plan Description Senior Living Facility/Rehab Comment Pt & is hoping to go to a SNF @ [place] Additional comment Lives on [place] Feels Safe in Current Environment Yes Been Physically Hurt or Threatened By a No Person in Current Environment Do you have thoughts of harming yourself None or others? Are you currently considering suicide? No Do you have a plan to hurt yourself or No Plan others? Do You Have Any Spiritual Beliefs That No May Affect Your HC Choices? Do You Have Any Cultural Practices That No May Affect Your HC Choices? Comment Clint Who Can We Speak to About Patient's Care Family, friends Identifying Code for Release of Patient Declines to issue Information Health Care Proxy/Next of Kin Micaela () Health Care Proxy Emergency Contact Name Micaela () Emergency Contact Advance Directives? Yes Advance Directives on File No Requested Patient Bring Advanced Yes Directives DOS Power of Manager Ship Yes Power of Manager Ship Name Micaela () Power of Manager Ship PAC Instructions Bring CPAP/BIPAP,Durable medical equipment,Medications to take/avoid,Nasal antibiotic ,No ETOH/petroleum product on skin DOS,NPO,Pre-surgical wash ,Sensory aids,Sturdy shoes/ comfortable clothes,Do not bring valuables and remove jewelry
== END 2022-06-13 12:54 | disposition home or self-care (01) ==
LOC: OR 08:52 → AC 08:54
PROVIDERS: PCP Student in an Organized Health Care Education/Training Program; Referring Provider Orthopaedic Surgery; Visit Provider Orthopaedic Surgery
PROC: 0SRC0JZ Replacement of Right Knee Joint with Synthetic Substitute, Open Approach (ICD-10-PCS; CPT 27447; principal; 2022-06-12 10:45)
DX: M17.11 Unilateral primary osteoarthritis, right knee (principal); J44.9 Chronic obstructive pulmonary disease, unspecified; I10 Essential (primary) hypertension; I25.2 Old myocardial infarction
CPT/HCPCS: 27447; 36415; 73560; 85014; 85018; 97161; 97530; C1776; C9290; J0690; J1100; J2405; J2704; J3010

== ENCOUNTER → 2022-06-24 12:55 | Outpatient (CLI) | payer MEDICARE, SELFPAY ==
[2022-06-12 09:08] VITALS: BMI 33.7
--- NOTE | 2022-06-24 12:57 | DI.US.S_ITS ---
PROCEDURE: US PERIPH VENOUS LOW EXTREM RT INDICATIONS: SWELLING. POST KNEE SURGERY. TECHNIQUE: Real-time imaging, as well as color and pulse Doppler interrogation, were performed of the lower extremity deep veins from the inguinal ligament to the popliteal fossa. COMPARISON: [facility] [place], CR, XR KNEE 4+ VIEWS RIGHT, 06/24/2022, 11:27. FINDINGS: There is a small amount of partially occlusive deep venous thrombosis seen within the distal femoral vein. Compression within this region cannot be assessed, secondary to edema. Soft tissue edema can be seen. IMPRESSION: There is partially occlusive thrombus seen within the distal right femoral vein. Note: Concordant preliminary findings given by the manager administrative services upon the completion of the examination to medical records manager Shamika Ramos at 1:31 p.m. on June 24, 2022. Dictated by: Glenn Long M.D. on 06/24/2022 at 15:08 Approved by: Glenn Long M.D. on 06/24/2022 at 15:09
== END ==
PROVIDERS: PCP Student in an Organized Health Care Education/Training Program; Referring Provider Physician Assistant; Visit Provider Physician Assistant
DX: I82.411 Acute embolism and thrombosis of right femoral vein (principal); M25.461 Effusion, right knee; Z96.651 Presence of right artificial knee joint
CPT/HCPCS: 93971

== ENCOUNTER 2022-06-24 13:38 | Emergency (ER) | payer MEDICARE, SELFPAY ==
[2022-06-12 09:08] VITALS: BMI 33.7
[2022-06-24] VITALS (8 sets, daily range): BP systolic 126–150; BP diastolic 64–71; PULSE 74–84; RESP 16; TEMP 36.6; O2SAT 96–98; BMI 32.1
--- NOTE | 2022-06-24 16:59 | ED.EXTPRO ---
HPI - Extremity Problem General Chief complaint: Extremity Problem,Nontraumatic Stated complaint: Blood clot Time Seen by Provider: 06/24/22 16:59 Source: patient and family Mode of arrival: Wheelchair Limitations: no limitations History of Present Illness HPI Narrative: The patient had right knee surgery 12 June 2021. He has history of AFib, he was anticoagulated with Eliquis and Plavix prior to the surgery. He came off the medications for the surgery. Was started back on Eliquis 3 days postop. He has pain and swelling in the right calf, below the surgical site. Three days after surgery he was seen by his PCM for cough and dyspnea. He was started on an inhaler. He is no URI symptoms, no productive cough, no chest pain, no fever chills. Currently has no hemoptysis or dyspnea. He is no prior history of DVT or PE. Ultrasound done yesterday showed a partially occlusive thrombus in the right distal femoral vein. He has pain in the right knee in the right calf. He has no numbness or weakness in lower extremities. He is taking tramadol for postop pain, and now calf pain. He is having nightmares on the tramadol. He thinks his doctor changed him over to hydrocodone, he does not yet have that available at pharmacy. Related Data Home Medications Medication Instructions Recorded Confirmed amlodipine 5 mg tablet 5 mg PO BEDTIME 06/09/22 06/12/22 melatonin 3 mg capsule 3 mg PO BEDTIME 06/09/22 06/12/22 metoprolol succinate 50 mg 50 mg PO BEDTIME 06/09/22 06/12/22 tablet,extended release 24 hr niacin 500 mg tablet 500 mg PO DAILY 06/09/22 06/12/22 pantoprazole 40 mg tablet,delayed 40 mg PO DAILY 06/09/22 06/12/22 release simvastatin 10 mg tablet 10 mg PO BEDTIME 06/09/22 06/12/22 umeclidinium 62.5 mcg/actuation 1 inh inhalation QNOON 06/09/22 06/12/22 blister powder for inhalation (Incruse Ellipta) Previous Rx's Medication Instructions Recorded acetaminophen 650 mg 650 mg PO Q6H PRN pain #1 tab 06/13/22 tablet,extended release apixaban 5 mg tablet (Eliquis) 5 mg PO BID #1 tab 06/13/22 clopidogrel 75 mg tablet 75 mg PO QMWF #1 tab 06/13/22 docusate sodium 100 mg capsule 100 mg PO BID PRN Constipation 06/13/22 from narcotic pain meds #20 caps tramadol 50 mg tablet See Rx Instructions .Route 06/13/22 .COMPLEX PRN Pain, Moderate (4-6) #42 tabs Allergies Allergy/AdvReac Type Severity Reaction Status Date / Time adhesive tape Allergy Severe Kellogg, Verified 06/24/22 13:51 blisters shrimp Allergy Mild Rash Verified 06/24/22 13:51 oxycodone AdvReac Severe Panic Verified 06/24/22 13:51 attacks, confusion morphine AdvReac Intermediate SOB, Verified 06/24/22 13:51 anxiety rosuvastatin [From Crestor] AdvReac Intermediate Muscle Pain Verified 06/24/22 13:51 tramadol AdvReac Hallucinati Verified 06/24/22 13:51 ng Review of Systems Constitutional Constitutional: Reports as per HPI, Denies body ache(s), Denies chills, Denies fatigue, Denies headache(s) and Denies weakness Eyes Eyes: Denies change in vision ENT Ears, Nose, Mouth, and Throat: Denies vertigo, Denies dizziness, Denies headache(s), Denies sinus pain and Denies sore throat Cardiovascular Cardiovascular: Denies chest pain, Denies rapid heart rate, Reports pedal edema and Denies dyspnea Respiratory Respiratory: Denies chest congestion, Reports cough, Denies hemoptysis, Denies dyspnea and Denies wheezing Gastrointestinal Gastrointestinal: Denies abdominal pain, Denies melena and Denies nausea Musculoskeletal Musculoskeletal: Denies back pain Comments: Right knee pain and swelling. Right calf and foot pain and swelling. Integumentary/Breasts Skin/Breast: Denies lesions and Denies rash Neurologic Neurologic: Denies confusion, Denies vertigo, Denies dizziness, Denies headache(s) and Denies weakness Psychiatric Psychiatric: Denies confusion Endocrine Endocrine: Denies fatigue Allergic/Immunologic Allergic/Immunologic: Denies wheezing Patient History Medical History (Updated 06/24/22 @ 18:41 by Los Murry MD) Atrial fibrillation BCC (basal cell carcinoma) CAD (coronary artery disease) Cardiac arrest (1999) Chronic kidney disease (CKD) COPD (chronic obstructive pulmonary disease) Diastolic dysfunction Erectile dysfunction Hearing impaired Heartburn History of Mohs micrographic surgery for skin cancer (06/02/22) HTN (hypertension) Liver nodule 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) Myocardial infarction (1999) PAC (premature atrial contraction) PAD (peripheral artery disease) PVC (premature ventricular contraction) Renal colic SCC (squamous cell carcinoma) Sleep apnea Surgical History (Updated 06/24/22 @ 18:44 by Los Murry MD) H/O vasectomy 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) History of total right knee replacement History of urologic surgery (2021) Hx laparoscopic cholecystectomy (2009) Hx of esophagogastroduodenoscopy (08/19/21) Hx of heart artery stent (1999) Hx of lithotripsy (2016) Hx of tonsillectomy (1941) Hx of umbilical hernia repair (2014) Social History household members: spouse Smoking Status: Former smoker alcohol intake: former Smoking Status: Former smoker Substance Use Type: does not use Exam Initial Vital Signs Initial Vital Signs: Vital Signs Temperature 97.9 F 06/24/22 13:51 Pulse Rate 75 06/24/22 13:51 Respiratory Rate 16 06/24/22 13:51 Blood Pressure 150/65 H 06/24/22 13:51 Pulse Oximetry 97 06/24/22 13:51 Oxygen Delivery Method 06/24/22 13:51 Const General: cooperative, healthy appearing and comfortable Nutritional Appearance: average body habitus HENMT Head: normocephalic and atraumatic Neck Neck: No JVD Resp Effort & Inspection: normal respiratory effort Auscultation: clear to auscultation bilaterally Cardio Palpation: normal PMI Rate: regular rate Rhythm: regular rhythm Heart Sounds: S1 normal, S2 normal and no murmurs GI Inspection: normal to inspection Palpation: soft Auscultation: normal bowel sounds Back/Spine/Pelvis Back: No back tenderness Skin General: no rashes or lesions noted Neuro General: patient alert, patient awake, patient oriented x3 and no focal motor deficits Extrem Other: Postoperative pain and swelling to the right knee. Slight warmth and slight erythema. Normal postoperative findings. Swelling and tenderness in the right calf and right foot. Positive right Homans. Right dorsalis pedis pulses normal. Psych Appearance: grossly normal and well kempt Course Course Course Narrative: Ultrasound reveals right lower extremity DVT. He is on the appropriate medications for this, the DVT must deformity immediately after surgery in the narrow window in which he was not anticoagulated. He is back on Eliquis. CTA does not indicate PE. He does have pulmonary nodules that were discussed. He is continue current medications. Ice packs may help. He should recheck with his PCM in upcoming days. Orders Ordered: ED Orders 06/24/22 17:09 Measure peak expiratory flow PRE TREATMENT 06/24/22 17:10 CT angio chest PE protocol Stat 06/24/22 17:23 EKG-12 Lead Stat 06/24/22 17:25 Basic Metabolic Panel Stat Complete Blood Count AUTO DIFF Stat Prothrombin Time INR Stat Discontinued Medications Hydrocodone Bitart/Acetaminophen (Hydrocodone/Acet 5/325 Prepack) 1 bottle MISC SEEINSTR ONE Stop: 06/24/22 18:45 Last Admin: 06/24/22 18:53 Dose: 1 bottle Documented By: ALFONZO Hydrocodone Bitart/Acetaminophen (Hydrocodone/Acet 5/325 Tablet) 1 tab PO NOW ONE Stop: 06/24/22 18:45 Last Admin: 06/24/22 18:52 Dose: 1 tab Documented By: ALFONZO Sodium Chloride (Normal Saline 0.9%) 1,000 mls @ 250 mls/hr IV CONT NURA Last Admin: 06/24/22 18:28 Dose: Not Given Documented By: MICAH Vital Signs Vital signs: Vital Signs - 8 hr 06/24/22 13:51 06/24/22 15:30 06/24/22 15:31 Temperature 97.9 F Pulse Rate 75 84 83 Respiratory Rate 16 Blood Pressure 150/65 H Pulse Oximetry 97 98 97 Oxygen Delivery Method Room Air 06/24/22 15:31 06/24/22 16:00 06/24/22 16:00 Temperature Pulse Rate 74 Respiratory Rate Blood Pressure 126/71 136/64 Pulse Oximetry 97 Oxygen Delivery Method 06/24/22 16:30 06/24/22 16:30 06/24/22 17:00 Temperature Pulse Rate 78 76 Respiratory Rate Blood Pressure 129/69 Pulse Oximetry 96 97 Oxygen Delivery Method 06/24/22 17:01 06/24/22 17:01 06/24/22 17:30 Temperature Pulse Rate 75 Respiratory Rate Blood Pressure 141/65 H 132/69 Pulse Oximetry 98 Oxygen Delivery Method 06/24/22 17:30 Temperature Pulse Rate 77 Respiratory Rate Blood Pressure Pulse Oximetry 98 Oxygen Delivery Method MDM - Extremity (Nontraumatic) Lab Data 06/24/22 17:25 06/24/22 17:25 Labs: Lab Results 06/24/22 06/24/22 06/24/22 Range/Units 17:25 17:25 17:25 WBC 11.4 H (4.5-11.0) X10^3/uL RBC 3.77 L (4.5-5.9) X10^6/uL Hgb 11.8 L (13.5-17.5) g/dL Hct 35.5 L (41-53) % MCV 94.1 (80-100) fL MCH 31.4 (26-34) PG MCHC 33.3 (30-36) % RDW 13.6 (11.6-14.8) % Plt Count 233 (150-400) X10^3/uL Neut % (Auto) 75.1 H (50-75) % Lymph % (Auto) 14.9 L (25-40) % Garland % (Auto) 7.9 (3-14) % Eos % (Auto) 1.5 L (2-4) % Baso % (Auto) 0.6 (0-2) % Neut # (Auto) 8500 H (8411-1306) /uL Lymph # (Auto) 1700 (6842-2296) /uL Garland # (Auto) 900 (0-900) /uL Eos # (Auto) 200 (0-450) /uL Baso # (Auto) 100 (0-100) /uL PT 19.1 H (10.1-12.7) SECONDS INR 1.7 H (0.9-1.3) Sodium 139 (137-145) mmol/L Potassium 4.1 (3.4-5.1) mmol/L Chloride 102 (98-107) mmol/L Carbon Dioxide 28 (22-32) mmol/L BUN 26 H (9-20) mg/dL Creatinine 1.19 (0.66-1.25) mg/dL Estimated GFR 59 L (>60) mL/min BUN/Creatinine Ratio 21.8 (6-22) Glucose 107 (80-110) mg/dL Calcium 8.3 L (8.4-10.2) mg/dL Imaging Data Lower extremity ultrasound: Radiologist's Impression: There is partially occlusive thrombus seen within the distal right femoral vein.? ? Chest CTA: Radiologist's Impression: 1. No central pulmonary embolus. 2. Coronary artery disease. 3. Pulmonary nodules as described above.? Follow-up is recommended as below. 4. Small hiatal hernia. ECG Data Attestation EKG: I personally reviewed and interpreted this ECG as follows: (AFib rate 89 beats per minute. Probable old inferior infarct. No acute ST elevation.) Discharge Plan Departure Patient Disposition: Home Clinical Impression: Deep vein thrombosis of right lower extremity, Pulmonary nodule, History of total right knee replacement Instructions: Deep Vein Thrombosis Activity Restrictions/Additional Instructions: Continue current medications. Ice packs to right lower extremity. If you have chest pain or shortness of breath you should return the ER right away. Follow-up with your doctor regarding the pulmonary nodules noted on CT, and monitoring of the right leg DVT. I have provided you a small supply of hydrocodone for leg pain, with the assumption that you have a prescription available at the pharmacy tomorrow. Contact her primary care doctor if you need additional pain management. Return to the ER as needed. Prescriptions: No Action metoprolol succinate 50 mg Tablet Extended Release 24 Hr 50 mg PO BEDTIME simvastatin 10 mg Tablet 10 mg PO BEDTIME amlodipine 5 mg Tablet 5 mg PO BEDTIME pantoprazole 40 mg Tablet,Delayed Release (Dr/Ec) 40 mg PO DAILY niacin 500 mg Tablet 500 mg PO DAILY Incruse Ellipta 62.5 mcg/actuation Blister With Device 1 inh INHALATION QNOON melatonin 3 mg Capsule 3 mg PO BEDTIME docusate sodium 100 mg Capsule 100 mg PO BID PRN (Reason: Constipation from narcotic pain meds) Qty: 20 0RF tramadol 50 mg Tablet See Rx Instructions .ROUTE .COMPLEX PRN (Reason: Pain, Moderate (4-6)) Qty: 42 0RF Rx Instructions: Take 1-2 tablets by mouth every 4 hours as needed for moderate to severe postoperative pain (Max 8 tablets per day) clopidogrel 75 mg Tablet 75 mg PO QMWF Qty: 1 0RF Rx Instructions: Resume 06/15/2022 acetaminophen 650 mg Tablet Extended Release 650 mg PO Q6H PRN (Reason: pain) Qty: 1 0RF Eliquis 5 mg Tablet 5 mg PO BID Qty: 1 0RF Rx Instructions: Resume 06/15/2022 Referrals: Varun King MD [Primary Care Provider] - Stand Alone Forms: Patient Portal/API
--- NOTE | 2022-06-24 17:10 | DI.CT.S_ITS ---
PROCEDURE: CT ANGIO CHEST PE PROTOCOL INDICATIONS: +DVT. CONCERN FOR PE TECHNIQUE: After the administration of intravenous contrast, 2 mm thick sections acquired from the pulmonary apices to the posterior costophrenic angles. 3-dimensional maximum intensity projection (MIP) coronal and sagittal reformats were then acquired through the thorax. For radiation dose reduction, the following was used: automated exposure control, adjustment of mA and/or kV according to patient size. COMPARISON: None. FINDINGS: Image quality: Excellent. Pulmonary arteries: Pulmonary arteries are normal in size, and demonstrate no intraluminal filling defects to suggest central pulmonary embolism. Lungs and pleura: 8 mm ground-glass nodule within right upper lobe posteriorly with central cavitation. Subpleural nodule within the right apex posteriorly measuring 8 mm. Ground-glass nodule within the right upper lobe laterally measuring 5 mm. Scattered smaller bilateral pulmonary nodules are present. No pleural effusions or pneumothorax. Central and peripheral airways are patent. Mediastinum: Heart size is normal, without pericardial effusion. Calcification of the coronary vasculature. No mediastinal or hilar adenopathy. Thoracic aorta is normal in caliber and enhancement. Esophagus is normal in caliber. Small hiatal hernia. Bones and chest wall: No suspicious bony lesions. Ribs and thoracic spine appear intact throughout. Thyroid gland is within normal limits. No axillary or supraclavicular adenopathy. Abdomen: Visualized portions of the upper abdomen demonstrate cholecystectomy clips, as well as multiple hepatic cysts. Normal appendix. IMPRESSION: 1. No central pulmonary embolus. 2. Coronary artery disease. 3. Pulmonary nodules as described above. Follow-up is recommended as below. 4. Small hiatal hernia. 5. Normal appendix. Fleischner Society criteria for SOLID lung nodule followup. Nodule size (mm)Low-risk patientHigh-risk patient<6 (single or multiple)No routine followup.Optional CT at 12 months. 6-8 (single or multiple)CT at 6-12 months, then optional CT at 18-24 mo.CT at 6-12 months, then CT at 18-24 months. >8 (single)CT, PET-CT, or biopsy at 3 months. Same as for low-risk pts. >8 (multiple)CT at 3-6 months, then optional CT at 18-24 mo.CT at 3-6 months, then CT at 18-24 months. Fleischner Society criteria for SUB-SOLID lung nodule followup. Solitary pure ground-glass nodules<6 mm (ground glass or part solid)No followup needed. 6 mm or larger (ground glass)CT at 6-12 months to confirm persistence, then CT every 2 years until 5 years.6 mm or larger (part solid)CT at 3-6 months to confirm persistence, then annual CT until 5 years if unchanged and solid component remains <6 mm. Multiple sub-solid nodules<6 mmCT at 3-6 months, then CT consider at 2 & 4 years for high risk patients. [address] at 3-6 months. Subsequent management based on most suspicious lesions. Recommendations do not apply to lung cancer screening, patients with immunosuppression, or patients with known primary cancer. Dictated by: Neil Almonte M.D. on 06/24/2022 at 18:18 Approved by: Neil Almonte M.D. on 06/24/2022 at 18:21
[2022-06-24 17:35] LABS: Add Manual Diff / Slide Review NO; Basophils Absolute Auto 100 /uL (0-100); Basophils Percent Auto 0.6 % (0-2); Eosinophils Absolute Auto 200 /uL (0-450); Eosinophils Percent Auto 1.5 % (2-4); Hematocrit 35.5 % (41-53); Hemoglobin 11.8 g/dL (13.5-17.5); Lymphocytes Absolute Auto 1700 /uL (1100-4500); Lymphocytes Percent Auto 14.9 % (25-40); Mean Corpuscular HGB Conc 33.3 % (30-36); Mean Corpuscular Hemoglobin 31.4 PG (26-34); Mean Corpuscular Volume 94.1 fL (80-100); Monocytes Absolute Auto 900 /uL (0-900); Monocytes Percent Auto 7.9 % (3-14); Neutrophils Absolute Auto 8500 /uL (1500-7000); Neutrophils Percent Auto 75.1 % (50-75); Platelet Count 233 X10^3/uL (150-400); Red Blood Cell Count 3.77 X10^6/uL (4.5-5.9); Red Cell Distribution Width 13.6 % (11.6-14.8); White Blood Cell Count 11.4 X10^3/uL (4.5-11.0)
[2022-06-24 17:44] LABS: INR 1.7 (0.9-1.3); Prothrombin Time 19.1 SECONDS (10.1-12.7)
[2022-06-24 17:51] LABS: BUN Creatinine Ratio 21.8 (6-22); Blood Urea Nitrogen 26 mg/dL (9-20); Calcium 8.3 mg/dL (8.4-10.2); Carbon Dioxide 28 mmol/L (22-32); Chloride 102 mmol/L (98-107); Estimated Glomerular Filt Rate 59 mL/min (>60); Glucose 107 mg/dL (80-110); HEMOLYSIS < 15 (0-50); Potassium 4.1 mmol/L (3.4-5.1); Sodium 139 mmol/L (137-145)
[2022-06-24] MEDS: HYDROCODONE/ACET 5/325 TABLET 1 TAB PO (18:52)
[2022-06-24] MEDS: HYDROCODONE/ACET 5/325 PREPACK 1 BOTTLE MISC (18:53)
== END 2022-06-24 19:02 | disposition home or self-care (01) ==
PROVIDERS: Emergency Provider Emergency Medicine; PCP Student in an Organized Health Care Education/Training Program
DX: I82.401 Acute embolism and thrombosis of unspecified deep veins of right lower extremity (principal); R91.1 Solitary pulmonary nodule; Z96.651 Presence of right artificial knee joint; R07.9 Chest pain, unspecified; I82.411 Acute embolism and thrombosis of right femoral vein; M25.461 Effusion, right knee
CPT/HCPCS: 36415; 71275; 80048; 85025; 85610; 93005; 93971; 99283; 99284; Q9967

== ENCOUNTER → 2022-11-26 10:19 | Outpatient (CLI) | payer MEDICARE, SELFPAY ==
[2022-06-12 09:08] VITALS: BMI 33.7
--- NOTE | 2022-11-26 | DI.NM.S_ITS ---
PROCEDURE: NM BONE SCAN WHOLE BODY RADIOPHARMACEUTICAL: 22.0 mCi Tc-99m MDP IV. INDICATIONS: Abnormal findings on diagnostic imaging of other parts of mu TECHNIQUE: Delayed whole-body scintigrams were obtained approximately 3-4 hours after intravenous injection of radiotracer. Anterior and posterior views were acquired from vertex to feet. Additional left and right oblique views of the pelvis were obtained. COMPARISON: [facility], CR, XR LUMBAR SPINE 2 OR 3 VIEWS, 09/09/2022, 13:58. [facility], MR, MR LUMBAR SPINE WITHOUT CONTRAST, 10/29/2022, 14:15. [facility], CR, XR KNEE 4+ VIEWS RIGHT, 06/24/2022, 11:27. [facility], CR, XR KNEE RT 1TO2V, 06/12/2022, 13:20. FINDINGS: No definitive abnormal uptake in the right iliac bone to correlate with the hypointense nodule seen on the comparison MRI. No lesions are identified in skull, sternum, clavicles, scapulae, ribs, bony pelvis, and visualized shafts of the long bones. There are foci of increased uptake in cervical, thoracic and lumbar spine most likely secondary to degenerative disc and facet disease; early metastasis to spine could be obscured by degenerative changes. Bilateral total knee arthroplasties. There is more intense uptake around right knee prosthesis. There are foci of increased periarticular activity involving shoulders, sternoclavicular joints, hips and ankles, compatible with degenerative/arthritic changes. IMPRESSION: 1. No definitive abnormal uptake in the right iliac bone to correlate with the lesion seen on MRI. 2. Bilateral total knee arthroplasties. There is increased uptake in right knee prosthesis. Please correlate with right knee pain and radiograph of the right knee. Cannot rule out prosthesis loosening. 3. 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 Dictated by: Mitchell Palacio M.D. on 11/26/2022 at 14:21 Approved by: Mitchell Palacio M.D. on 11/26/2022 at 18:43
== END ==
PROVIDERS: PCP Student in an Organized Health Care Education/Training Program; Referring Provider Orthopaedic Surgery; Visit Provider Orthopaedic Surgery
DX: R93.7 Abnormal findings on diagnostic imaging of other parts of musculoskeletal system (principal); Z96.653 Presence of artificial knee joint, bilateral
CPT/HCPCS: 78306; A9503